=== PATIENT | female | born 1945 | race Caucasian/White ===

== ENCOUNTER 2017-03-06 12:51 | Inpatient (IN) | payer MEDICARE ==
[~2017-03-06] VITALS: Ht 157.5 cm; Wt 66.5 kg
[2017-03-06] MEDS ORDERED: UNK HTN MED PO (13:10)
[2017-03-06] MEDS ORDERED: ATOR10TA84 PO (13:10)
[2017-03-06 13:24] LABS: BASOPHILS # (AUTO) 0.04 K/uL (0.00-0.20); BASOPHILS % (AUTO) 0.6 % (0.0-2.0); EOSINOPHILS # (AUTO) 0.12 K/uL (0.00-0.70); HEMATOCRIT 32.7 % (36-46); HEMOGLOBIN 11.1 g/dL (12.0-16.0); LYMPHOCYTES # (AUTO) 2.6 K/uL (1.0-4.8); LYMPHOCYTES % (AUTO) 33.9 % (22.0-44.0); MEAN CORPUSCULAR HEMOGLOBIN 28.9 pg (26.0-34.0); MEAN CORPUSCULAR HGB CONC 33.8 G/dL (31.0-37.0); MEAN CORPUSCULAR VOLUME 86 fL (80-100); MONOCYTES # (AUTO) 0.9 K/uL (0.1-1.0); MONOCYTES % (AUTO) 11.3 % (2.0-9.0); NEUTROPHILS % (AUTO) 52.6 % (40.0-70.0); PLATELET COUNT (AUTO) 338 K/uL (150-450); RED BLOOD CELL COUNT(AUTO) 3.82 MIL/uL (4.00-5.20); WHITE BLOOD COUNT (AUTO) 7.7 K/uL (4.5-11.0)
[2017-03-06 13:38] LABS: ANION GAP 12 mmol/L (8-16); CALCIUM, TOTAL 9.3 mg/dL (8.8-10.5); CARBON DIOXIDE 25 mmol/L (22-29); CHLORIDE 107 mmol/L (98-107); CREATININE 0.78 mg/dL (0.60-1.30); GLOMERULAR FILTR. RATE CALC > 60 mL/min (>60); SODIUM SERUM 144 mmol/L (136-145); UREA NITROGEN, BLOOD 20 mg/dL (7-18)
[2017-03-06 13:44] LABS: ALANINE AMINOTRANSFERASE 29 U/L (12-78); ALBUMIN 3.5 g/dL (3.4-5.0); ASPARTATE AMINOTRANSFERASE 26 U/L (15-37); BILIRUBIN,TOTAL 0.2 mg/dL (0.1-1.0); TOTAL PROTEIN, SERUM 6.8 g/dL (6.4-8.2)
[2017-03-06] MEDS ORDERED: LORazepam 2 MG TABLET PO PRN (16:45)
[2017-03-06] MEDS ORDERED: HALOPERIDOL 5 MG TABLET PO PRN (16:45)
[2017-03-06 18:57] VITALS: BP 128/91
[2017-03-06 21:45] VITALS: BP 143/80
[2017-03-07 07:02] LABS: CHOL/HDL RATIO 4.6 (3.9-5.7)
[2017-03-07 09:18] VITALS: BP 139/77
[2017-03-07] MEDS ORDERED: CloNIDine HCL 0.1 MG TABLET PO PRN (09:30)
[2017-03-07] MEDS ORDERED: IBUPROFEN 600 MG TABLET PO PRN (09:30)
[2017-03-07] MEDS ORDERED: ONDANSETRON HCL 4 MG TABLET PO PRN (09:30)
[2017-03-07] MEDS ORDERED: BACITRACIN 28.4 GM OINTMENT TP PRN (09:30)
[2017-03-07] MEDS ORDERED: MAGNESIUM HYDROXIDE SUSPENSION 30 ML UDCUP PO PRN (09:30)
[2017-03-07] MEDS ORDERED: LOPERAMIDE HCL 2 MG CAPSULE PO PRN (09:30)
[2017-03-07] MEDS ORDERED: PETROLATUM,WHITE 71 GM JELLY TP PRN (09:30)
[2017-03-07] MEDS ORDERED: BENZOCAINE/MENTHOL LOZENGE [8 LOZENGES/PACKET] MM PRN (09:30)
[2017-03-07] MEDS ORDERED: ALBUTEROL SULFATE HFA 90 MCG/PUFF 8 GM INHALER IH PRN (09:30)
[2017-03-07] MEDS ORDERED: MAG HYDROX/AL HYDROX/SIMETH ES 30 ML SUSPENSION UDCUP PO PRN (09:30)
[2017-03-07] MEDS: OLANZapine 5 MG RAPDIS TABLET PO SCH (11:39)
[2017-03-07] MEDS: ACETAMINOPHEN 325 MG TABLET PO PRN (16:40)
[2017-03-07 16:41] VITALS: BP 143/93
[2017-03-07] MEDS ORDERED: PHENYLEPHRINE/SHK LV/MIN OIL/PET 57 GM OINTMENT TP PRN (20:15)
[2017-03-07] MEDS: ATORVASTATIN CALCIUM 10 MG TABLET PO SCH (20:51)
[2017-03-07] MEDS: ZOLPIDEM TARTRATE 10 MG TABLET PO PRN (23:06)
[2017-03-08] MEDS: FISH OIL/OMEGA-3 FATTY ACIDS 500 MG CAPSULE PO SCH (08:24)
[2017-03-08] MEDS: METOPROLOL TARTRATE 50 MG TABLET PO SCH (08:25)
[2017-03-08] MEDS: OLANZapine 5 MG RAPDIS TABLET PO SCH (08:25)
[2017-03-08 09:00] VITALS: BP 125/95
[2017-03-08 16:16] VITALS: BP 107/60
[2017-03-08] MEDS: ACETAMINOPHEN 325 MG TABLET PO PRN ×2 (16:16→20:11)
[2017-03-08] MEDS: ATORVASTATIN CALCIUM 10 MG TABLET PO SCH (20:11)
[2017-03-08 20:12] VITALS: BP 110/78
[2017-03-08] MEDS: ZOLPIDEM TARTRATE 10 MG TABLET PO PRN (21:48)
[2017-03-09 08:05] VITALS: BP 112/77
[2017-03-09] MEDS: OLANZapine 5 MG RAPDIS TABLET PO SCH (08:23)
[2017-03-09] MEDS: METOPROLOL TARTRATE 50 MG TABLET PO SCH (08:23)
[2017-03-09] MEDS: FISH OIL/OMEGA-3 FATTY ACIDS 500 MG CAPSULE PO SCH (08:23)
[2017-03-09] MEDS ORDERED: FISH1 PO (12:59)
[2017-03-09] MEDS ORDERED: OLAN5Z PO (12:59)
[2017-03-09] MEDS ORDERED: METO50 PO (12:59)
== END 2017-03-09 14:45 | disposition home or self-care (01) | DRG 885 ==
LOC: EMS 12:54 → B2X 17:18 → 3EX 21:00
PROVIDERS: ADMIT Psychiatry & Neurology Child & Adolescent Psychiatry; ATTEND Psychiatry & Neurology Child & Adolescent Psychiatry
DX: F29 Unspecified psychosis not due to a substance or known physiological condition (principal); F39 Unspecified mood [affective] disorder; R45.851 Suicidal ideations; I10 Essential (primary) hypertension; E78.1 Pure hyperglyceridemia; E78.5 Hyperlipidemia, unspecified; G47.00 Insomnia, unspecified; G47.33 Obstructive sleep apnea (adult) (pediatric); K59.00 Constipation, unspecified; M19.90 Unspecified osteoarthritis, unspecified site; F41.9 Anxiety disorder, unspecified; M25.50 Pain in unspecified joint; Z56.0 Unemployment, unspecified; Z72.89 Other problems related to lifestyle; Z71.41 Alcohol abuse counseling and surveillance of alcoholic; D64.9 Anemia, unspecified
CPT/HCPCS: 99285; G0480